=== PATIENT | female | born 2000 ===

== ENCOUNTER 2023-07-31 19:39 | Outpatient (REF) | payer OTHER, SELFPAY ==
[2023-08-06 12:09] LABS: Age Gdln ACOG Testing Note (.); IGP, rfx Aptima HPV ASCU Note (.)
== END 2023-07-31 19:40 | disposition home or self-care (01) ==
LOC: LAB 19:39
PROVIDERS: Visit Provider Physician Assistant
DX: Z01.419 Encounter for gynecological examination (general) (routine) without abnormal findings (principal)
CPT/HCPCS: G0145

== ENCOUNTER 2024-08-04 19:43 | Outpatient (REF) | payer OTHER, SELFPAY ==
--- OUTSIDE RECORDS SUMMARY | 2024-08-04 11:00 | XMS_ITS | Encounter Summary ---
Author Organization [facility] Address [address] [place] [address] Care Team Providers Care Etl Developer Name Role Phone Brneda Kim MD Primary Care Provider [phone] Jennifer Connell SUPPLIER QUALITY Unavailable [phone] Jennifer Connell SUPPLIER QUALITY Unavailable [phone] Reason for Visit * Reason Comments Well Women Visit Encounter Details Date Type Department Care Team (Late st Contact Info) Description 08/04/2024 11:00 AM EDT Office Visit [facility] [address] [place] [address] Kymberly Russ PA [address] [place], [place] [id number] Well woman exam with routine gynecological exam Social History Tobacco Use Types Packs/Day Years Used Date Smoking Tobacco: Never Smokeless Tobacco: Never Alcohol Use Standard Drinks/Week Comments Yes 0 (1 standard drink = 0.6 oz pur e alcohol) once a month PHQ-2 Answer Date Recorded Patient Health Questionnaire-2 Score 0 05/04/2024 Comments Unknown Sex and Gender Information Value Date Recorded Sex Assigned at Not on file Legal Sex Female 8:10 PM EDT Gender Identity Female 05/29/2022 8:10 PM EDT Sexual Orientation Not on file documented as of this encounter Last Filed Vital Signs Vital Sign Reading Time Taken Comments Blood Pressure 120/76 08/04/2024 11:02 AM EDT Pulse - - Temperature - - Respiratory Rate - - Oxygen Saturation - - Inhaled Oxygen Concentration - - Weight 94.4 kg (208 lb 1.9 oz) 08/04/2024 11:02 AM EDT Height - - Body Mass Index 34.11 05/04/2024 5:37 PM EST documented in this encounter Progress Notes * ANTONIO Chambers - 08/04/2024 11:00 AM EDT Reason for Appointment: Patient ID: Jonna Kraft is a 24 y.o. female who presents for [facility] Women Visit Patient presents today for Annual Exam. MEDICATIONS Current Outpatient Medications Medication Instructions Estarylla 0.25-35 MG-MCG tablet 1 tablet, Oral, Daily sertraline (ZOLOFT) 50 mg, Oral, Daily ALLERGIES No Known Allergies PROBLEMS Active Ambulatory Problems Diagnosis Date Noted Depression ([facility]) Adolescent idiopathic scoliosis of lumbar region 04/01/2016 Anxiety 08/28/2023 Dysmenorrhea 08/28/2023 Pharyngeal dysphagia 08/28/2023 Resolved Ambulatory Problems Diagnosis Date Noted No Resolved Ambulatory Problems No Additional Past Medical History HISTORY PAST MEDICAL HISTORY SOCIAL HISTORY Past Medical History: Diagnosis Date Depression ([facility]) Social History Tobacco Use Smoking status: Never Smokeless tobacco: Never Vaping Use Vaping status: Never Used Substance Use Topics Alcohol use: Yes Comment: once a month Drug use: Never FAMILY HISTORY Family History Problem Relation Name Age of Onset Breast cancer Maternal Grandmother SURGICAL HISTORY Past Surgical History: Procedure Laterality Date WISDOM TOOTH EXTRACTION REVIEW OF SYSTEMS Review of Systems: Review of Systems Constitutional: Negative. HENT: Negative. Eyes: Negative. Respiratory: Negative. Cardiovascular: Negative. Gastrointestinal: Negative. Genitourinary: Negative. Musculoskeletal: Negative. Skin: Negative. Neurological: Negative. All other systems reviewed and are negative. Hematological: Negative. Endocrine: Negative. Allergic/Immunologic: Negative. OBJECTIVE Objective: Physical Exam Constitutional: Appearance: Normal appearance. Genitourinary: Right Adnexa: not tender and no mass present. Left Adnexa: not tender and no mass present. No cervical discharge. Breasts: Breasts are soft. Right: Normal. Left: Normal. HENT: Head: Normocephalic. Nose: Nose normal. Mouth/Throat: Mouth: Mucous membranes are moist. Cardiovascular: Rate and Rhythm: Normal rate. Pulmonary: Effort: Pulmonary effort is normal. Abdominal: General: Bowel sounds are normal. Palpations: Abdomen is soft. Musculoskeletal: General: Normal range of motion. Cervical back: Normal range of motion. Neurological: General: No focal deficit present. Mental Status: She is alert. Skin: General: Skin is warm and dry. Psychiatric: Mood and Affect: Mood normal. Vitals and nursing note reviewed. Exam conducted with a head grower present. Vitals: Estimated body mass index is 34.11 kg/m?? as calculated from the following: Height as of 05/04/24: 5' 5.5 . Weight as of this encounter: 208 lb 1.9 oz. BP: 120/76 No LMP recorded (within weeks). ASSESSMENT & PLAN ICD-10-CM 1. Well woman exam with routine gynecological exam Z01.419 POCT urinalysis dipstick manually resulted Pap Smear Annual Exam: Patient presents today for an annual exam. Patient states she is doing well and has no complaints. Pap was obtained without difficulty. Orders Placed This Encounter Procedures POCT urinalysis dipstick manually resulted Follow Up: Patient is to return in one year for annual unless needed otherwise. Documented by ANTONIO Chambers on behalf of: ANTONIO Chambers documented in this encounter Plan of Treatment Upcoming Encounters Date Type Department Care Team (Late st Contact Info) Description 08/10/2025 11:00 AM EDT Office Visit [facility] [address] [place] [id number] Kymberly Russ PA [address] [place] [address] Scheduled Orders Name Type Priority Associated Diagnoses Orde r Schedule Pap Smear Pathology and Cytology Routine Well woman exam with routine gynecological exam Ordered: 08/04/2024 documented as of this encounter Procedures Procedure Name Priority Date/Time Associated Diagnosis Comments POCT URINALYSIS DIPSTICK Routine 08/04/2024 11:11 AM EDT Well woman exam with routine gynecological exam documented in this encounter Results * (ABNORMAL) POCT urinalysis dipstick manually resulted (08/04/2024 11:11 AM EDT) Color, UA Yellow Clarity, UA Clear Glucose, UA Negative Negative - 1999(110) ++++ mg/dL Bilirubin, UA Negative Negative - 4(70) +++ mg/dL Ketones, UA Negative Negative - 160(16) ++++ mg/dL Spec Grav, UA 1.030 1 - 1.03 Blood, UA Positive Negative - 50 Robby/mcL Comment:trace-intact pH, UA 6.0 5 - 9 Protein, UA Negative Negative - 1999(20) ++++ mg/dL Urobilinogen, UA 0.2 0.2 - 12 mg/dL Leukocytes, UA Trace Negative - 500+++ Ilda/mcL Nitrite, UA Negative Negative - Positive Urine 08/04/2024 11:1 1 AM EDT Kymberly ALVAREZ POINT OF CARE TEST ENTER/EDIT OR DERABLES Final Result documented in this encounter Visit Diagnoses Diagnosis Well woman exam with routine gynecological exam Routine gynecological examination documented in this encounter Additional Health Concerns Assessment Noted Time PHQ-9 Depression Total Score: 2 08/28/19 24 5:00 PM EDT documented as of this encounter Care Teams Etl Developer Relationship Specialty Start Date End Date Brenda Kim MD [address] [place] [address] PCP - General Family Medicine 12/04/23 Jennifer Connell NP [address] [place] [address] PCP - Medical [employer] 11/25/22 03/16/99 Jennifer Connell NP [address] [place] [address] Nurse Practitioner Family Medicine 12/04/23 documented as of this encounter
--- OUTSIDE RECORDS SUMMARY | 2024-08-04 19:46 | XMS_ITS | Encounter Summary ---
Author Organization [facility] Address [address] [facility] [place] [address] Care Team Providers Care Harness Tier Name Role Phone Brenda Kim MD Primary Care Provider [phone] Jennifer Connell ASSISTANT READING TEACHER Unavailable [phone] Jennifer Connell ASSISTANT READING TEACHER Unavailable [phone] Encounter Details Date Type Department Care Team (Late Contact Info) Description 08/04/2024 Bamboo flowsheet [facility] [address] [place] [address] Kymberly Russ PA [address] [place] [address] [place] [address] Social History Tobacco Use Types Packs/Day Years [...] on file documented as of this encounter Plan of Treatment Upcoming Encounters Date Type Department Care Team (Late Contact Info) Description 08/10/2025 11:00 AM EDT Office Visit [facility] [address] [place] [address] Kymberly Russ PA [address] [place] [address] [place] [address] documented as of this encounter Visit Diagnoses Not on filedocumented in this encounter Additional Health Concerns Assessment Noted Time PHQ-9 Depression Total Score: 2 08/28/19 24 5:00 PM EDT documented as of this encounter Care Teams Harness Tier Relationship Specialty Start Date End Date Brenda Kim MD [address] [place], [place] [id number] PCP - General Family Medicine 12/04/23 Jennifer Connell NP [address] [place], [place] [id number] PCP - Medical [employer] 11/25/22 03/16/99 Jennifer Connell NP [address] [place], [place] [id number] Nurse Practitioner Family Medicine 12/04/23 documented as of this encounter
--- OUTSIDE RECORDS SUMMARY | 2024-08-04 19:46 | XMS_ITS | CCD ---
Author Organization [facility] Care Team Providers Care Heel Seater Name Role Phone John TURNER, Reyes Fernandez Unavailable [phone] Brenda Kim MD Primary Care Provider Becki CROFT, Jennifer Smith Unavailable AIDEN TURPIN Attending Unavailable KYMBERLY KELLOGG Attending Unavailable JENNIFER CONNELL Attending JENNIFER Reardon Attending AIDEN Kovacs Attending Unavailable JENNIFER CONNELL Attending Kelsey Herrera NP, Jennifer Smith Unavailable Medications Current Medications Medication Drug Class(es) Dates Sig (Normalized) Sig (Original) amoxicillin 875 mg / clavulanate 125 mg oral tablet (2 sources) Penicillin-class Antibacterial Start: 01-16-2024 End: 01-23-2024 take 1 tablet by mouth in the morning amoxicillin-clav ulanate (Augmentin) 875-125 MG tablet Indications: Acute left otitis media Take 1 tablet (875 mg) by mouth in the morning and 1 tablet (875 mg) before bedtime. Do all this for 7 days. 14 tablet 01/16/2024 01/23/2024 Active ethinyl estradiol 0.035 mg / norgestimate 0.25 mg oral tablet (16 sources) Progestin, Estrogen Start: 07-29-2024 Estarylla 0.25-35 MG-MCG tablet Indications: Medication refill TAKE 1 TABLET DAILY 84 tablet 3 07/29/2024 Active Start: 09-02-2023 take 1 tablet by cristi th once daily norgestimate-ethinyl estradiol (Sprintec 28) 0.25-35 MG-MCG tablet Indications: Medication refill Take 1 tablet by mouth Daily 84 tablet 3 09/02/2023 Active sertraline 50 mg oral tablet (16 sources) Serotonin Reuptake Inhibitor Start: 12-09-2023 sertraline (Zoloft) 50 MG tablet Indications: Medication refill TAKE 1 TABLET DAILY 90 tablet 3 12/09/2023 Active Start: 08-29-2023 take 1 tablet by cristi th once daily sertraline (Zoloft) 50 MG tablet Indications: Medication refill Take 1 tablet (50 mg) by mouth Daily 90 tablet 08/29/2023 Active Completed/Discontinued Medications Medication Drug Class(es) Dates Sig (Normalized) Sig (Original) nitrofurantoin, macrocrystals 25 mg / nitrofurantoin, monohydrate 75 mg oral capsule (4 sources) Nitrofuran Antibacterial Start: 12-04-2023 End: 12-16-2023 take 1 capsule by mouth in the morning nitrofurantoin, macrocrystal-monoh ydrate, (Macrobid) 100 MG capsule Indications: Acute cystitis with hematuria Take 1 capsule (100 mg) by mouth in the morning and 1 capsule (100 mg) before bedtime. Do all this for 7 days. 14 capsule 12/04/2023 12/16/2023 Discontinued Problems Active Problems Problem Classification Problem Date Documented Da te Episodic/Chronic Anxiety disorders (16 sources) Anxiety; Translations: [Anxiety disorder, unspecified] Onset: 08-28-2023 08-28-2023 Chronic Menstrual disorders (16 sources) Dysmenorrhea; Translations: [Dysmenorrhea, unspecified] Onset: 08-28-2023 08-28-2023 Chronic Mood disorders (16 sources) Depressive disorder; Translations: [Depression] 08-28-2023 Chronic Other bone disease and musculoskeletal deformities (16 sources) Adolescent idiopathic scoliosis of lumbar spine; Translations: [Adolescent idiopathic scoliosis, lumbar region] Onset: 04-01-2016 08-28-2023 Chronic Other lower respiratory disease (2 sources) Cough; Translations: [Cough, unspecified type] 05-04-2024 Episodic Other upper respiratory infections (4 sources) Infective pharyngitis; Translations: [Acute pharyngitis due to other specified organisms] 01-16-2024 Episodic Otitis media and related conditions (2 sources) Acute left otitis media; Translations: [Otitis media, unspecified, left ear] 01-16-2024 Episodic Urinary tract infections (4 sources) Acute cystitis; Translations: [Acute cystitis with hematuria] 12-16-2023 Episodic Past or Other Problems Problem Classification Problem Date Documented Da te Episodic/Chronic Genitourinary symptoms and ill-defined conditions (2 sources) Increased frequency of urination; Translations: [Frequency of micturition] 12-04-2023 Episodic Mood disorders (16 sources) Mood disorders Onset: 08-28-2023 08-28-2023 Other gastrointestinal disorders (16 sources) Pharyngeal dysphagia; Translations: [Dysphagia, pharyngeal phase] Onset: 08-28-2023 08-28-2023 Episodic Results Test Name Value Interpretation Reference Range Facil ity Urinalysis macro (dipstick) panel (U)on 08-04-2024 Bilirubin, UA Negative Negative - 4(7 0) +++ mg/dL [facility] Blood, UA Positive Negative - 50 Robby/mcL [facility] Comment on above: trace-intact Clarity, UA Clear [facility] re Color, UA Yellow formerly [facility] e Glucose, UA Negative Negative - 1999(110) ++++ mg/dL [facility] Interpretation and review of laboratory results Abnormal [facility] Ketones, UA Negative Negative - 160(16) ++++ mg/dL [facility] Leukocytes, UA Trace Negative - 50 0+++ Ilda/mcL [facility] Nitrite, UA Negative Negative - Positive [facility] pH, UA 6 5 - 9 formerly [facility] e Protein, UA Negative Negative - 1999(20) ++++ mg/dL [facility] Spec Grav, UA 1.03 1 - 1.03 [facility] Urobilinogen, UA 0.2 0.2 - 12 mg/dL [facility] Laboratory - Microbiology an d Antimicrobial susceptibilityon 05-04-2024 SARS-CoV-2 (COVID-19) RNA PEPPER+probe Ql (Unsp spec) Negative [facility] No Panel Informationon 05-04 FLU A Negative [facility] FLU B Negative [facility] Interpretation and review of laboratory results Normal [facility] Laboratory - Microbiology an d Antimicrobial susceptibilityon 01-16-2024 SARS-CoV-2 (COVID-19) RNA PEPPER+probe Ql (Unsp spec) Negative [facility] No Panel Informationon 01-15 [facility]U [facility] Urinalysis macro (dipstick) panel (U)Ordered By: Deepthi Waldron on 12-16-2023 Bilirubin, UA Negative Negative - 4(7 0) +++ mg/dL [facility] Blood, UA Positive Negative - 50 Robby/mcL [facility] Clarity, UA Clear [facility] Color, UA Light Yellow [facility] are Glucose, UA Negative Negative - 1999(110) ++++ mg/dL [facility] Ketones, UA Negative Negative - 160(16) ++++ mg/dL [facility] Leukocytes, UA Positive Negative - 50 0+++ Ilda/mcL [facility] Nitrite, UA Negative Negative - Positive [facility] pH, UA 5.0 5 - 9 [facility] Protein, UA Trace Negative - 1999(20) ++++ mg/dL [facility] Spec Grav, UA 1.015 1 - 1.03 [facility] Urobilinogen, UA 0.2 0.2 - 12 mg/dL [facility] HCG ( test) Ql (U)o n 12-04-2023 Preg Test, Ur Negative [facility] Urinalysis macro (dipstick) panel (U)on 12-04-2023 Bilirubin, UA Negative Negative - 4(7 0) +++ mg/dL [facility] Blood, UA Positive Negative - 50 Robby/mcL [facility] Clarity, UA Cloudy [facility] re Color, UA Yellow [facility] Glucose, UA Negative Negative - 1999(110) ++++ mg/dL [facility] Ketones, UA Negative Negative - 160(16) ++++ mg/dL [facility] Leukocytes, UA Positive Negative - 50 0+++ Ilda/mcL [facility] Nitrite, UA Negative Negative - Positive [facility] pH, UA 6.0 5 - 9 [facility] Protein, UA Positive Negative - 1999(20) ++++ mg/dL [facility] Spec Grav, UA 1.010 1 - 1.03 [facility] Urobilinogen, UA 1.0 0.2 - 12 mg[facility] Vital Signs Date Time Vital Sign Value Performing Clinician Segundo ferrera 08-04-2024 11:02-0400 Body mass index (BMI) [Ratio] 34.11 kg/m2 Kymberly ALVAREZ Work Phone: [facility] 08-04-2024 11:02-0400 Body weight 94.4 kg Kymberly ALVAREZ Work Phone: [facility] 08-04-2024 11:02-0400 Diastolic blood pressure 76 mm[Hg] Kymberly ALVAREZ Work Phone: [facility] 08-04-2024 11:02-0400 Systolic blood pressure 120 mm[Hg] Kymberly Kellogg PA Work Phone: [facility] 05-04-2024 17:37-0500 Body height 166.4 cm Aiden Lyonsraohaim [employer] SAL[employer] COORD[employer]ATOR Work Phone: [facility] 05-04-2024 17:37-0500 Body mass index (BMI) [Ratio] 33.37 kg/m2 Aiden Turpin [employer] SAL[employer] COORDINATOR Work Phone: [facility] 05-04-2024 17:37-0500 Body weight 92.35 kg Aiden Turpin [employer] SALES COORDINATOR Work Phone: [facility] 05-04-2024 17:37-0500 Diastolic blood pressure 68 mm[Hg] Aiden Turpin [employer] SAL[employer] COORDINATOR Work Phone: [facility] 05-04-2024 17:37-0500 Heart rate 81 /min Aiden Turpin [employer] SALES COORDINATOR Work Phone: [facility] 05-04-2024 17:37-0500 SaO2% (BldA) [Mass fraction] 97 % Aiden Turpin [employer] SALES COORDINATOR Work Phone: [facility] 05-04-2024 17:37-0500 Systolic blood pressure 106 mm[Hg] Aiden Turpin [employer]AR SALES COORDINATOR Work Phone: [facility] 01-16-2024 08:28-0400 Body mass index (BMI) [Ratio] 31.27 kg/m2 Jennifer Connell [employer] SAL[employer] COORDINATOR Work Phone: [facility] 01-16-2024 08:28-0400 Body temperature 97.39 [degF] Jennifer Connell [employer] SALES COORDINATOR Work Phone: [facility] 01-16-2024 08:28-0400 Body weight 86.55 kg Jennifer Connell [employer] SALES COORDINATOR Work Phone: [facility] 01-16-2024 08:28-0400 Diastolic blood pressure 76 mm[Hg] Jennifer Connell [employer] SALES COORDINATOR Work Phone: [facility] 01-16-2024 08:28-0400 Systolic blood pressure 116 mm[Hg] Jennifer Connell [employer] SALES COORDINATOR Work Phone: [facility] 12-16-2023 13:41-0400 Body height 166.4 cm Aiden Turpin [employer] SALES COORDINATOR Work Phone: [facility] 12-16-2023 13:41-0400 Body mass index (BMI) [Ratio] 30.74 kg/m2 Aiden Turpin [employer] SAL[employer] COORDINATOR Work Phone: [facility] 12-16-2023 13:41-0400 Body weight 85.09 kg Aiden Turpin [employer] SALES COORDINATOR Work Phone: [facility] 12-16-2023 13:41-0400 Diastolic blood pressure 74 mm[Hg] Aiden Turpin [employer] SALES COORDINATOR Work Phone: [facility] 12-16-2023 13:41-0400 Heart rate 101 /min Aiden Turpin [employer] SAL[employer] COORDINATOR Work Phone: [facility] 12-16-2023 13:41-0400 SaO2% (BldA) [Mass fraction] 99 % Aiden Turpin [employer] SAL[employer] COORDINATOR Work Phone: [facility] 12-16-2023 13:41-0400 Systolic blood pressure 120 mm[Hg] Aiden Turpin [employer] SALES COORDINATOR Work Phone: [facility] 12-04-2023 16:03-0400 Body mass index (BMI) [Ratio] 30.65 kg/m2 Jennifer Connell [employer] SAL[employer] COORDINATOR Work Phone: [facility] 12-04-2023 16:03-0400 Body temperature 97.3 [degF] Jennifer Sanchezk [employer] SALES COORDINATOR Work Phone: [facility] 12-04-2023 16:03-0400 Body weight 84.82 kg Jennifer Connell [employer] SALES COORDINATOR Work Phone: [facility] 12-04-2023 16:03-0400 Diastolic blood pressure 76 mm[Hg] Jennifer Sanchezk [employer] SALES COORDINATOR Work Phone: [facility] 12-04-2023 16:03-0400 Systolic blood pressure 118 mm[Hg] Jennifer Rosetrick [employer] SAL[employer] COORDINATOR Work Phone: [facility] Encounters Encounter Date Encounter Type Care Provider Facility Start: 08-04-2024 End: 08-04-2024 Bamboo flowsheet Kymberly ALVAREZ Work Phone: [facility] Start: 08-04-2024 End: 08-04-2024 Bamboo flowsheet Kymberly ALVAREZ Work Phone: [facility] Start: 08-04-2024 End: 08-04-2024 Patient encounter procedure Kymberly ALVAREZ Work Phone: [facility] Work Phone: Start: 08-04-2024 End: 08-04-2024 Periodic preventive med est patient 18-39 yrs Kymberly ALVAREZ Work Phone: [facility] Comment on above: Well woman exam with routine gynecological exam Start: 07-06-2024 End: 07-06-2024 Telephone encounter Joelle Butler MA [facility] Comment on above: Open Orders Start: 05-04-2024 End: 05-04-2024 ambulatory AIDEN TURPIN Not Available Start: 05-04-2024 End: 05-04-2024 Office outpatient visit 15 minutes Aiden Turpin [employer] SAL[employer] COORDINATOR Work Phone: [facility] Comment on above: Post-nasal drip (Alma sourav Dx); Cough, unspecified type Start: 05-04-2024 End: 05-04-2024 Bamboo flowsheet Aiden Turpin [employer] SALES COORDINATOR Work Phone: [facility] Start: 05-04-2024 End: 05-04-2024 Bamboo flowsheet Aiden Turpin [employer]WEAR SALES COORDINATOR Work Phone: [facility] Start: 01-16-2024 End: 01-16-2024 Bamboo flowsheet Jennifer Connell [employer]WE[employer] SALES COORDINATOR Work Phone: [facility] Start: 01-16-2024 End: 01-16-2024 Bamboo flowsheet Jennifer Sanchezk [employer] SALES COORDINATOR Work Phone: [facility] Start: 01-16-2024 End: 01-16-2024 Office outpatient visit 15 minutes Jennifer Connell [employer] SALES COORDINATOR Work Phone: [facility] Comment on above: Pharyngitis due to o ther organism (Primary Dx); Acute left otitis media Start: 01-16-2024 End: 01-16-2024 ambulatory JENNIFER CONNELL Not Available Start: 12-16-2023 End: 12-16-2023 Bamboo flowsheet Aiden Turpin [employer]WE[employer] SALES COORDINATOR Work Phone: [facility] Start: 12-16-2023 End: 12-16-2023 Bamboo flowsheet Aiden Turpin [employer]WE[employer] SALES COORDINATOR Work Phone: [facility] Start: 12-16-2023 End: 12-16-2023 Office outpatient visit 10 minutes Aiden Lyonsraohaim [employer] SALES COORDINATOR Work Phone: [facility] Comment on above: Acute cystitis with hematuria (Primary Dx) Start: 12-16-2023 End: 12-16-2023 ambulatory AIDEN LYONSRaoHAIM Not Available Start: 12-04-2023 End: 12-04-2023 Office outpatient visit 15 minutes Jennifer Connell [employer] SAL[employer] COORDINATOR Work Phone: [facility] Comment on above: Urinary frequency (P rimary Dx); Acute cystitis with hematuria Start: 12-04-2023 End: 12-04-2023 ambulatory JENNIFER A CONNELL Not Available Start: 12-04-2023 End: 12-04-2023 Bamboo flowsheet Jennifer A Connell [employer] SALES COORDINATOR Work Phone: [facility] Start: 12-04-2023 End: 12-04-2023 Bamboo flowsheet Jennifer Rosetrick [employer] SALES COORDINATOR Work Phone: [facility] Start: 08-28-2023 End: 08-28-2023 ambulatory JENNIFER Luis BECKI Not Available Start: 07-31-2023 End: 07-31-2023 ambulatory KYMBERLY KELLOGG Not Available Procedures Date Procedure Procedure Detail Performing Clinician Start: 08-04-2024 Urnls dip stick/tabl et rgnt non-auto w/o micrscp Kymberly Kellogg PA Work Phone: Start: 05-04-2024 STATUS COVID-19/FLU Christi Lyonsraohaim [employer] SALES COORDINATOR Work Phone: Start: 01-16-2024 STATUS COVID-19/FLU Chr issalud Smith Becki [employer]AR SALES COORDINATOR Work Phone: Start: 12-16-2023 Urnls dip stick/tabl et rgnt non-auto w/o micrscp Aiden Lyonsraohaim [employer] SALES COORDINATOR Work Phone: Start: 12-04-2023 Urnls dip stick/tabl et rgnt non-auto w/o micrscp Jennifer Smith Connell [employer]AR SALES COORDINATOR Work Phone: Plan of Treatment Date Care Activity Detail Author Start: 08-10-2025 End: 08-10-2025 Patient encounter procedure 08/10/2025 11:00 AM EDT Office Visit [facility] [address] [place] [address] Kymberly Kellogg PA [address] [place] [address] [facility] Start: 11-15-2024 Influenza vaccination Influenz a Vaccine (Season Ended) [facility] Start: 08-04-2024 End: 08-04-2024 Patient encounter procedure [facility] Comment on above: Arrived Start: 08-02-2024 End: 08-02-2024 Patient encounter procedure 08/02/2024 11:00 AM EDT Office Visit [facility] [address] [place] [place] [id number] Kymberly Kellogg PA [address] [place] [address] [facility] Start: 01-29-2024 Influenza vaccination Influenza Vacc ine (#1) [facility] Comment on above: Postponed from 11/15 (Patient Refused) Start: 01-16-2024 End: 01-16-2024 Patient encounter procedure 01/16/2024 8:30 AM EDT Office Visit [facility] [address] [place] [id number] Jennifer Connell, FOOTWEAR SALES COORDINATOR [address] [place] [address] Arrived [facility] Comment on above: Arrived Start: 12-16-2023 End: 12-16-2023 Patient encounter procedure 12/16/2023 1:00 PM EDT Office Visit [facility] [address] [place] [id number] Jennifer Connell, FOOTWEAR SALES COORDINATOR [address] [place] [address] [facility] Start: 12-04-2023 End: 12-04-2023 Patient encounter procedure 12/04/2023 4:00 PM EDT Office Visit [facility] [address] [place] [id number] Jennifer Connell, FOOTWEAR SALES COORDINATOR [address] [place] [address] Arrived [facility] Comment on above: Arrived Start: 11-16-2023 Influenza vaccination Influenza Vacc ine (#1) [facility] Bacteria identified in Urine by Culture Urine culture Microbiology Routine Urinary frequency Ordered: 12/04/2023 [facility] Work Phone: Comment on above: Ordered: 12/04/2023 Cytology Cervical or vaginal smear or scraping study Pap Smear Pathology and Cytology Routine Well woman exam with routine gynecological exam Ordered: 08/04/2024 [facility] Work Phone: Comment on above: Ordered: 08/04/2024 Payers Date Payer Category Payer Private Health Insurance [employer] Member Subscriber Plan / Payer (Effective 2022-Present) Name: Jonna Kraft Relation to Subscriber: Child Name: GUSTAVO KRAFT Date of : 1978 Address: [address] [place] [address] Payer ID: Not on file Type: Not on file Address: [address] [place] [id number] 2022 Unknown [employer] [id number] 2022-Present [address] [place] [address] [id number] 2022 Unknown [id number] 2002 Unknown [id number] 2002 Unknown [id number] 2002 Unknown [id number] 2002 Unknown [id number] 2002 Unknown [id number] 2002 Unknown [id number] Social History Date Type Detail Facility [facility]: [facility] Start: 08-28-2023 Tobacco use and exposure Smokeless t obacco non-user [facility] Start: 12-04-2023 End: 08-04-2024 Alcoholic beverage intake Current drinker of alcohol (finding) [facility] Start: 12-04-2023 End: 05-04-2024 History of Social function [facility] Start: 12-04-2023 End: 05-04-2024 Tobacco use panel [facility] Start: 08-28-2023 Alcohol Comment once a month [facility] Start: 2002 Sex assigned at Not on file [facility] Start: 05-29-2022 Gender identity Identifies as female gender (finding) [facility] Clinical Notes 12-04-2023 to 08-04-2024 ANTONIO Chambers - 08/04/2024 11:00 AM EDTTelephone Encounter - Lexieabdias Jacobsen - 07/06/2024 3:06 PM EDTTelephone Encounter - Lexie Jacobsen - 07/06/2024 3:06 PM EDT Note Date & Type Note Facility 08-04-2024 History of Presen t illness Narrative Reason for Appointment: Patient ID: Jonna Kraft is a 24 y.o. female who presents for Well Women Visit Patient presents today for Annual Exam. MEDICATIONS Current Outpatient Medications Medication Instructions Estarylla 0.25-35 MG-MCG tablet 1 tablet, Oral, Daily sertraline (ZOLOFT) 50 mg, Oral, Daily ALLERGIES No Known Allergies PROBLEMS Active Ambulatory Problems Diagnosis Date Noted Depression (CMS/HCC) Adolescent idiopathic scoliosis of lumbar region 04/01/2016 Anxiety 08/28/2023 Dysmenorrhea 08/28/2023 Pharyngeal dysphagia 08/28/2023 Resolved Ambulatory Problems Diagnosis Date Noted No Resolved Ambulatory Problems No Additional Past Medical History HISTORY PAST MEDICAL HISTORY SOCIAL HISTORY Past Medical History: Diagnosis Date Depression ([facility] Social History Tobacco Use Smoking status: Never [...] nursing note reviewed. Exam conducted with a epilepsy physician present. Vitals: Estimated body mass index is 34.11 kg/m as calculated from the following: Height as [...] of: ANTONIO Chambers documented in this encounter [facility] 07-06-2024 Telephone encounter Note Form atting of this note might be different from the original. Patient called back- she is not interested in having CMP done. Please cancel orders. Thank you. [facility] 07-06-2024 Miscellaneous Notes Formattin g of this note might be different from the original. Patient called back- she is not interested in having CMP done. Please cancel orders. Thank you. Open CMP from August 2023. Lvm for pt asking if she is going to have this done or not. documented in this encounter [facility] 07-06-2024 Telephone encounter Note Form atting of this note might be different from the original. Open CMP from August 2023. Lvm for pt asking if she is going to have this done or not. [facility] 05-04-2024 History of Presen t illness Narrative Images from the original note were not included. Jonna Kraft is a 24 y.o. female presents with chief complaint of sore throat HPI: HPI History of Present Illness The patient presents for evaluation of a sore throat. She reports the onset of a sore throat a few hours prior to the visit, describing it as a sensation belen to a lump in her throat. She experiences pain during swallowing but does not report any scratchiness in her throat. She has not taken any Tylenol for her symptoms. She has been in contact with a coworker who had influenza last week. She does not report any systemic symptoms such as body aches, fevers, or chills. Additionally, she does not report any sinus congestion or coughing upon awakening. She has a past medical history of streptococcal pharyngitis. SOCIAL HISTORY She works at [employer]. SUBJECTIVE: MEDICATIONS: Current Outpatient Medications Medication Instructions norgestimate-ethinyl estradiol (Sprintec 28) 0.25-35 MG-MCG tablet 1 tablet, Oral, Daily sertraline (ZOLOFT) 50 mg, Oral, Daily I have reviewed and reconciled the history and medication list with the patient today. REVIEW OF SYMPTOMS: Review of Systems OBJECTIVE: Visit Vitals BP 106/68 Pulse 81 Ht 5' 5.5 Wt 203 lb 9.6 oz SpO2 97% BMI 33.37 kg/m Smoking Status Never BSA 2.07 m Physical Exam Vitals reviewed. HENT: Head: Normocephalic and atraumatic. Right Ear: Tympanic membrane normal. Left Ear: Tympanic membrane normal. Nose: Congestion present. Right Turbinates: Swollen. Left Turbinates: Swollen. Right Sinus: No maxillary sinus tenderness or frontal sinus tenderness. Left Sinus: No maxillary sinus tenderness or frontal sinus tenderness. Mouth/Throat: Mouth: Mucous membranes are moist. Pharynx: Postnasal drip present. Tonsils: No tonsillar exudate. 1+ on the right. 1+ on the left. Eyes: Pupils: Pupils are equal, round, and reactive to light. Cardiovascular: Rate and Rhythm: Normal rate and regular rhythm. Pulses: Normal pulses. Heart sounds: Normal heart sounds. Pulmonary: Effort: Pulmonary effort is normal. Breath sounds: Normal breath sounds. Musculoskeletal: Cervical back: Normal range of motion and neck supple. Skin: General: Skin is warm and dry. Capillary Refill: Capillary refill takes less than 2 seconds. Findings: No rash. Neurological: General: No focal deficit present. Mental Status: She is alert and oriented to person, place, and time. ASSESSMENT AND PLAN: Assessment/Plan Diagnoses and all orders for this visit: Post-nasal drip -Most likely causing the sore throat. Encouraged flonase daily. Discussed she could be coming down with a viral illness but viral load may not be high enough to show on testing yet. Educated about viral illnesses, encouraged good hand hygiene, cough/sneeze into arm. Instructed to notify office if symptoms persist or worsen Cough, unspecified type - STATUS COVID-19/FLU documented in this encounter [facility] 01-16-2024 History of Presen t illness Narrative Images from the original note were not included. Jonna Kraft is a 23 y.o. female presents with chief complaint of Cough HPI: HPI Patient is present with c/o sore throat, dry cough, runny nose that started Friday evening. Patient had her mother look at her throat yesterday evening and states her mother saw white spots in the back of her throat. SUBJECTIVE: MEDICATIONS: Current Outpatient Medications Medication Instructions norgestimate-ethinyl estradiol (Sprintec 28) 0.25-35 MG-MCG tablet 1 tablet, Oral, Daily sertraline (ZOLOFT) 50 mg, Oral, Daily I have reviewed and reconciled the history and medication list with the patient today. REVIEW OF SYMPTOMS: Review of Systems Constitutional: Negative for fatigue. HENT: Positive for congestion, ear pain, rhinorrhea and sore throat. Respiratory: Positive for cough. Negative for shortness of breath and wheezing. Cardiovascular: Negative for chest pain and palpitations. Gastrointestinal: Negative. Musculoskeletal: Negative. Skin: Negative. Neurological: Negative. OBJECTIVE: Visit Vitals Smoking Status Never Physical Exam Vitals and nursing note reviewed. Constitutional: Appearance: She is well-developed. HENT: Head: Normocephalic. Right Ear: Hearing normal. Left Ear: Hearing normal. Tympanic membrane is injected. Nose: Congestion and rhinorrhea present. Mouth/Throat: Mouth: Mucous membranes are moist. Pharynx: Posterior oropharyngeal erythema present. No oropharyngeal exudate. Tonsils: No tonsillar exudate. Cardiovascular: Rate and Rhythm: Normal rate and regular rhythm. Heart sounds: Normal heart sounds. Pulmonary: Effort: Pulmonary effort is normal. Breath sounds: Normal breath sounds. Abdominal: General: Abdomen is flat. There is no distension. Tenderness: There is no abdominal tenderness. Musculoskeletal: Cervical back: Neck supple. Lymphadenopathy: Cervical: Right cervical: No superficial cervical adenopathy. Left cervical: No superficial cervical adenopathy. Skin: General: Skin is warm. Capillary Refill: Capillary refill takes less than 2 seconds. Neurological: General: No focal deficit present. Mental Status: She is alert and oriented to person, place, and time. ASSESSMENT AND PLAN: Assessment/Plan Diagnoses and all orders for this visit: Pharyngitis due to other organism Acute left otitis media - amoxicillin-clavulanate (Augmentin) 875-125 MG tablet; Take 1 tablet (875 mg) by mouth in the morning and 1 tablet (875 mg) before bedtime. Do all this for 7 days. Take medications as prescribed. documented in this encounter [facility] 12-16-2023 History of Presen t illness Narrative Images from the original note were not included. Jonna rKaft is a 23 y.o. female presents with chief complaint of UTI (Follow up) HPI: HPI Presents to the office today for uti follow-up. Finished her antibiotics. Denies any symptoms. Trying to drink plenty of water. At end of her menstrual cycle. SUBJECTIVE: MEDICATIONS: Current Outpatient Medications Medication Instructions norgestimate-ethinyl estradiol (Sprintec 28) 0.25-35 MG-MCG tablet 1 tablet, Oral, Daily sertraline (ZOLOFT) 50 mg, Oral, Daily REVIEW OF SYMPTOMS: Review of Systems Constitutional: Negative. HENT: Negative. Eyes: Negative. Respiratory: Negative. Cardiovascular: Negative. Gastrointestinal: Negative. Genitourinary: Negative. Musculoskeletal: Negative. Skin: Negative. Neurological: Negative. OBJECTIVE: Visit Vitals BP 120/74 (BP Location: Left arm, Patient Position: Sitting, BP Cuff Size: Large adult) Pulse 101 Ht 5' 5.5 Wt 187 lb 9.6 oz SpO2 99% BMI 30.74 kg/m Smoking Status Never BSA 1.98 m Physical Exam Vitals reviewed. Constitutional: Appearance: Normal appearance. HENT: Head: Normocephalic and atraumatic. Mouth/Throat: Mouth: Mucous membranes are moist. Eyes: Pupils: Pupils are equal, round, and reactive to light. Cardiovascular: Rate and Rhythm: Normal rate and regular rhythm. Pulses: Normal pulses. Heart sounds: Normal heart sounds. Pulmonary: Effort: Pulmonary effort is normal. Breath sounds: Normal breath sounds. Abdominal: General: Bowel sounds are normal. Palpations: Abdomen is soft. Tenderness: There is no abdominal tenderness. There is no right CVA tenderness or left CVA tenderness. Musculoskeletal: Cervical back: Normal range of motion and neck supple. Right lower leg: No edema. Left lower leg: No edema. Skin: General: Skin is warm and dry. Capillary Refill: Capillary refill takes less than 2 seconds. Findings: No rash. Neurological: General: No focal deficit present. Mental Status: She is alert and oriented to person, place, and time. ASSESSMENT AND PLAN: Assessment/Plan Diagnoses and all orders for this visit: Acute cystitis with hematuria -Resolved. Denies any symptoms. Hematuria most likely r/t her menstrual cycle. Instructed to notify office if symptoms return. documented in this encounter [facility] 12-04-2023 History of Presen t illness Narrative Images from the original note were not included. Jonna Kraft is a 23 y.o. female presents with chief complaint of UTI HPI: HPI Patient is present with c/o recurrent UTI. Patient reports she is currently experiencing urinary urgency. She states she was seen at [place] [facility] about a month ago and was treated for a UTI. She finished the antibiotics prescribed to her and felt better until a couple of days later where she began experiencing urinary urgency. She states this has been ongoing for a few weeks now. SUBJECTIVE: MEDICATIONS: Current Outpatient Medications Medication Instructions norgestimate-ethinyl estradiol (Sprintec 28) 0.25-35 MG-MCG tablet 1 tablet, Oral, Daily sertraline (ZOLOFT) 50 mg, Oral, Daily I have reviewed and reconciled the history and medication list with the patient today. REVIEW OF SYMPTOMS: Review of Systems Constitutional: Negative for fatigue. HENT: Negative for congestion, rhinorrhea and sore throat. Respiratory: Negative for cough, shortness of breath and wheezing. Cardiovascular: Negative for chest pain and palpitations. Gastrointestinal: Negative. Genitourinary: Positive for urgency. Musculoskeletal: Negative. Skin: Negative. Neurological: Negative. OBJECTIVE: Visit Vitals Smoking Status Never Physical Exam Vitals reviewed. Cardiovascular: Rate and Rhythm: Normal rate and regular rhythm. Pulses: Normal pulses. Heart sounds: Normal heart sounds. Pulmonary: Effort: Pulmonary effort is normal. Breath sounds: Normal breath sounds. Abdominal: General: Abdomen is flat. Bowel sounds are normal. Palpations: Abdomen is soft. Musculoskeletal: General: Normal range of motion. Skin: General: Skin is warm and dry. Neurological: General: No focal deficit present. Mental Status: She is oriented to person, place, and time. ASSESSMENT AND PLAN: Assessment/Plan Diagnoses and all orders for this visit: Urinary frequency - POCT urinalysis dipstick manually resulted - POCT , urine manually resulted - Urine culture Acute cystitis with hematuria - nitrofurantoin, macrocrystal-monohydrate, (Macrobid) 100 MG capsule; Take 1 capsule (100 mg) by mouth in the morning and 1 capsule (100 mg) before bedtime. Do all this for 7 days. Increase clear liquids. documented in this encounter [facility] Evaluation note Diagnosis Acute cystitis with hematuria- Primary documented in this encounter [facility]* Diagnosis Pharyngitis due to other organism- Primary Acute left otitis media documented in this encounter [facility]* Diagnosis Urinary frequency- Primary Acute cystitis with hematuria documented in this encounter [facility]* Diagnosis Post-nasal drip- Primary Postnasal drip Cough, unspecified type documented in this encounter [facility]* Diagnosis Well woman exam with routine gynecological exam Routine gynecological examination documented in this encounter [facility] Summary Purpose Family History No Family History Records Found Advance Directives No Advanced Directives Records Found Additional Source Comments Care Teams (unrecognized sec tion and content) Heel Seater Relationship Specialty [place] [address] [place] [address] PCP - Medical [employer] 08/15/22 03/16/99 Brenda Kim MD [address] [place] [address] PCP - General Family Medicine 12/04/23 Jennifer Connell NP [address] [place] [address] Nurse Practitioner Family Medicine 12/04/23 Heel Seater Relationship Specialty [place] [address] [place] [address] PCP - Medical [employer] 08/15/22 03/16/99 Brenda Kim MD [address] [place] [address] PCP - General Family Medicine 12/04/23 Jennifer Connell NP [address] [place] [address] Nurse Practitioner Family Medicine 12/04/23 Heel Seater Relationship Specialty [place] [address] [place] [address] PCP - Medical [employer] 08/15/22 03/16/99 Brenda Kim MD [address] [place] [address] PCP - General Family Medicine 12/04/23 Jennifer Connell NP [address] [place] [address] Nurse Practitioner Family Medicine 12/04/23 Heel Seater Relationship Specialty [place] [address] [place] [address] PCP - Medical [employer] 08/15/22 03/16/99 Brenda Kim MD [address] [facility] [place] [address] PCP - General Family Medicine 12/04/23 Jennifer Connell NP [address] [facility] [place] [address] Nurse Practitioner Family Medicine 12/04/23 Heel Seater Relationship Specialty [place] [address] [place] [address] PCP - Medical [employer] 08/15/22 03/16/99 Brenda Kim MD [address] [facility] [place] [address] PCP - General Family Medicine 12/04/23 Jennifer Connell NP [address] [facility] [place] [address] Nurse Practitioner Family Medicine 12/04/23 Heel Seater Relationship Specialty [place] [address] [place] [address] PCP - Medical [employer] 08/15/22 03/16/99 Brenda Kim MD [address] [facility] [place] [address] PCP - General Family Medicine 12/04/23 Jennifer Connell NP [address] [facility] [place] [address] Nurse Practitioner Family Medicine 12/04/23 Heel Seater Relationship Specialty Start Date End Date Brenda Kim MD [address] [place] [address] PCP - General Family Medicine 12/04/23 Jennifer Connell NP [address] [place] [address] PCP - Medical [employer] 11/25/22 03/16/99 Jennifer Connell NP [address] [place] [address] Nurse Practitioner Family Medicine 12/04/23 Heel Seater Relationship Specialty Start Date End Date Brenda Kim MD [address] [place] [address] PCP - General Family Medicine 12/04/23 Jennifer Connell NP [address] [facility] [place] [address] PCP - Medical [employer] 11/25/22 03/16/99 Jennifer Connell NP [address] [facility] [place] [address] Nurse Practitioner Family Medicine 12/04/23 Heel Seater Relationship Specialty Start Date End Date Brenda Kim MD [address] [place] [address] PCP - General Family Medicine 12/04/23 Jennifer Connell NP [address] [place] [address] PCP - Medical [employer] 11/25/22 03/16/99 Jennifer Connell NP [address] [facility] [place] [address] Nurse Practitioner Family Medicine 12/04/23 Heel Seater Relationship Specialty Start Date End Date Brenda Kim MD [address] [facility] [place] [address] PCP - General Family Medicine 12/04/23 Jennifer Connell NP [address] [facility] [place] [address] PCP - Medical [employer] 11/25/22 03/16/99 Jennifer Connell NP [address] [facility] [place], [place] [address] Nurse Practitioner Family Medicine 12/04/23 Reason for Visit (unrecogniz ed section and content) Reason Comments UTI Follow up Reason Comments Cough Reason Comments UTI Reason Onset Date Comments Open Orders 07/06/2024 Reason Comments Well Women Visit INFORMATION SOURCE (unrecogn ized section and content) DATE CREATED AUTHOR 05/06/2024 [facility] FOR RECORDS PERTAINING TO PATIENTS WHO ARE OR HAVE BEEN ENROLLED IN A CHEMICAL DEPENDENCY/SUBSTANCEABUSE PROGRAM, SOME INFORMATION MAY BE OMITTED. This clinical summary was aggregated from multiple sources. Caution should be exercised in using it in the provision of clinical care. This summary normalizes information from multiple sources, and as a consequence, information in this document may materially change the coding, format and clinical context of patient data. In addition, data may be omitted in some cases. CLINICAL DECISIONS SHOULD BE BASED ON THE PRIMARY CLINICAL RECORDS. [employer] provides no warranty or guarantee of the accuracy or completeness of information in this document.
--- OUTSIDE RECORDS SUMMARY | 2024-08-04 19:47 | XMS_ITS | Encounter Summary ---
Author Organization [facility] Address [address] [place] [address] Care Team Providers Care Premium Note Interest Calculator Clerk Name Role Phone Brenda Kim MD Primary Care Provider [phone] Jennifer Connell [employer] Unavailable [phone] Jennifer Connell [employer] Unavailable [phone] Reason for Visit * Reason Comments Med Refill Encounter Details Date Type Department Care Team (Late st Contact Info) Description 07/29/2024 Refill [facility] [address] [id number] [address] [facility] [address] [place], [place] [id number] Medication refill Social History Tobacco Use Types Packs/Day Years [...] on file documented as of this encounter Miscellaneous Notes * Telephone Encounter - Teodora Bañuelos LPN - 07/29/2024 10:56 AM EDT Refill request received and script sent. documented in this encounter Plan of Treatment Upcoming Encounters Date Type Department Care Team (Late st Contact Info) Description 08/10/2025 11:00 AM EDT Office Visit [facility] [address] [facility] [address] [place] [address] Kymberly Russ PA [address] [facility] [place] [address] documented as of this encounter Visit Diagnoses Diagnosis Medication refill Issue of repeat prescriptions documented in this encounter Additional Health Concerns Assessment Noted Time PHQ-9 Depression Total Score: 2 08/28/19 24 5:00 PM EDT documented as of this encounter Care Teams Premium Note Interest Calculator Clerk Relationship Specialty Start Date End Date Brenda Kim MD [address] [place] [address] PCP - General Family Medicine 12/04/23 Jennifer Connell NP [address] [place] [address] PCP - Medical [employer] [place] [employer] 11/25/22 03/16/99 Jennifer Connell NP [address] [place] [address] Nurse Practitioner Family Medicine 12/04/23 documented as of this encounter
--- OUTSIDE RECORDS SUMMARY | 2024-08-04 19:47 | XMS_ITS | Clinical Summary ---
Author Organization [facility] Address [address] [place] [address] Care Team Providers Care Welding Foreman Name Role Phone Brenda Kim MD Primary Care Provider [phone] Jennifer Connell MOLD CLAMPER Unavailable [phone] Jennifer Connell MOLD CLAMPER Unavailable [phone] Allergies No known active allergies Medications sertraline (Zoloft) 50 MG tabletIndicatio ns:Medication refill TAKE 1 TABLET DAILY 90 tablet 3 4 Active Estarylla 0.25-35 MG-MCG tabletIndicatio ns:Medication refill TAKE 1 TABLET DAILY 84 tablet 3 5 Active norgestimate-et hinyl estradiol (Sprintec 28) 0.25-35 MG-MCG tabletIndicatio ns:Medication refill Take 1 tablet by mouth Daily 84 tablet 3 4 07/30/19 25 Discontinued Active Problems Problem Noted Date Diagnosed Date Anxiety 08/28/2023 Dysmenorrhea 08/28/2023 Pharyngeal dysphagia 08/28/2023 Adolescent idiopathic scoliosis of lumbar region 04/01/2016 Depression Encounters Date Type Department Care Team Description 08/04/2024 11:00 AM EDT Office [facility] [address] [place] [address] Kymberly Russ PA Well woman exam with routine gynecological exam 08/04/[address] [facility] [address] [place] [address] Kymberly Russ PA 07/29/[address] [facility] [address] [place] [address] [address] DO Medication refill 07/06/2024 Telephone [facility] [address] [place] [address] Joelle Butler MA Open Orders from Last 3 Months Family History Medical History Relation Name Comments Breast cancer Maternal Grandmother Relation Name Status Comments Maternal Grandmother Social History Tobacco Use Types Packs/Day Years Used Date Smoking Tobacco: Never Smokeless Tobacco: Never Tobacco Cessation:Counseling Given: Not Answered Alcohol Use Standard Drinks/Week Comments Yes 0 (1 standard drink = 0.6 oz pur e alcohol) once a month PHQ-2 Answer Date Recorded Patient Health Questionnaire-2 Score 0 05/04/2024 Comments Unknown Sex and Gender Information Value Date Recorded Sex Assigned at Not on file Legal Sex Female 8:10 PM EDT Gender Identity Female 05/29/2022 8:10 PM EDT Sexual Orientation Not on file Last Filed Vital Signs Vital Sign Reading Time Taken Comments Blood Pressure 120/76 08/04/2024 11:02 AM EDT Pulse 81 05/04/2024 5:37 PM EST Temperature 36.3 C (97.4 F) 01/16/2024 8:28 AM EDT Respiratory Rate - - Oxygen Saturation 97% 05/04/2024 5:37 PM EST Inhaled Oxygen Concentration - - Weight 94.4 kg (208 lb 1.9 oz) 08/04/2024 11:02 AM EDT Height 166.4 cm (5' 5.5 ) 05/04/2024 5:37 PM EST Body Mass Index 34.11 05/04/2024 5:37 PM EST Plan of Treatment Upcoming Encounters Date Type Department Care Team (Late st Contact Info) Description 08/10/2025 11:00 AM EDT Office Visit [facility] [address] [place] [address] Kymberly Russ, ANTONIO [address] [place] [address] [place], [place] [id number] Health Maintenance Due Date Last Done Comments Influenza Vaccine (Season Ended) 2024 Procedures Procedure Name Priority Date/Time Associated Diagnosis Comments POCT URINALYSIS DIPSTICK Routine 08/04/2024 11:11 AM EDT Well woman exam with routine gynecological exam from Last 3 Months Results * (ABNORMAL) POCT urinalysis dipstick manually resulted (08/04/2024 11:11 AM EDT) Color, UA Yellow Clarity, UA Clear Glucose, UA Negative Negative - 2000(110) ++++ mg/dL Bilirubin, UA Negative Negative - [...] CARE TEST ENTER/EDIT OR DERABLES Final Result from Last 3 Months Insurance [employer] Care Teams Welding Foreman Relationship Specialty Start Date End Date Brenda Kim MD [address] [place] [address] PCP - General Family Medicine 12/04/23 Jennifer Connell NP [address] [place] [address] PCP - Medical [place] [employer] 11/25/22 03/16/99 Jennifer Connell NP [address] [place], [place] [id number] Nurse Practitioner Family Medicine 12/04/23
[2024-08-09 08:17] LABS: Age Gdln ACOG Testing Note (.); IGP, rfx Aptima HPV ASCU Note (.)
== END 2024-08-04 19:44 | disposition home or self-care (01) ==
LOC: LAB 19:43
PROVIDERS: Visit Provider Physician Assistant
DX: Z01.419 Encounter for gynecological examination (general) (routine) without abnormal findings (principal)
CPT/HCPCS: 88175